=== PATIENT | male | born 1940 | race Caucasian/White ===

== ENCOUNTER 2016-09-06 11:21 | Inpatient (IN) | payer MEDICARE ==
[~2016-09-06] VITALS: Ht 188 cm; Wt 102.1 kg
[2016-09-06 14:40] LABS: HEMOGLOBIN 8.3 gm/dl (14.0-17.5); RED BLOOD COUNT 2.86 M/UL (4.20-5.50); WHITE BLOOD COUNT 8.8 K/UL (4.5-11.0)
[2016-09-06] MEDS ORDERED: HYDRALAZINE HCL50 MG PO (21:21)
[2016-09-06] MEDS ORDERED: NICARDIPINE HCL20 MG PO (21:22)
[2016-09-06] MEDS ORDERED: OMEPRAZOLE20 M1 PO (21:22)
[2016-09-06] MEDS ORDERED: CALCITRIOL0.25 MCG PO (21:23)
[2016-09-06] MEDS ORDERED: FINASTERIDE5 MG PO (21:24)
[2016-09-06] MEDS ORDERED: FLOMAX 0.4 MG0.4 MG PO (21:24)
[2016-09-06] MEDS ORDERED: PROZAC 20 MG CA20 MG PO (21:24)
[2016-09-06] MEDS ORDERED: CATAPRES 0.1MG0.1 MG PO (21:25)
[2016-09-06] MEDS ORDERED: SOTALOL80 MG PO (21:25)
[2016-09-06] MEDS ORDERED: FLONASE ALLER15.8 ML (21:26)
[2016-09-06] MEDS ORDERED: SYMBICORT 16010.2 GM INH (21:26)
[2016-09-07 03:13] LABS: RED BLOOD COUNT 2.76 M/UL (4.20-5.50); WHITE BLOOD COUNT 6.9 K/UL (4.5-11.0)
[2016-09-08 07:16] LABS: HEMOGLOBIN 7.8 gm/dl (14.0-17.5); RED BLOOD COUNT 2.64 M/UL (4.20-5.50); WHITE BLOOD COUNT 8.2 K/UL (4.5-11.0)
[2016-09-10] MEDS ORDERED: SPIRIVA HANDIH18 MCG INH (15:10)
[2016-09-10] MEDS ORDERED: CILOXAN 0.3% O2.5 ML OP (15:29)
== END 2016-09-10 15:55 | disposition home or self-care (01) | DRG 291 ==
LOC: ER1 11:21 → ZEROF 16:00 → M/S 20:32
PROVIDERS: Family Medicine; Internal Medicine Nephrology; ADMIT Family Medicine
DX: I13.0 Hypertensive heart and chronic kidney disease with heart failure and stage 1 through stage 4 chronic kidney disease, or unspecified chronic kidney disease (principal); I50.33 Acute on chronic diastolic (congestive) heart failure; J96.20 Acute and chronic respiratory failure, unspecified whether with hypoxia or hypercapnia; N17.9 Acute kidney failure, unspecified; N02.8 Recurrent and persistent hematuria with other morphologic changes; N18.4 Chronic kidney disease, stage 4 (severe); R00.1 Bradycardia, unspecified; I95.2 Hypotension due to drugs; H10.022 Other mucopurulent conjunctivitis, left eye; D63.1 Anemia in chronic kidney disease; I48.0 Paroxysmal atrial fibrillation; I27.2 Other secondary pulmonary hypertension; N28.1 Cyst of kidney, acquired; D50.9 Iron deficiency anemia, unspecified; I25.10 Atherosclerotic heart disease of native coronary artery without angina pectoris; E03.9 Hypothyroidism, unspecified; J44.9 Chronic obstructive pulmonary disease, unspecified; K21.9 Gastro-esophageal reflux disease without esophagitis; N40.0 Benign prostatic hyperplasia without lower urinary tract symptoms; T50.995A Adverse effect of other drugs, medicaments and biological substances, initial encounter; Y92.230 Patient room in hospital as the place of occurrence of the external cause; Z87.891 Personal history of nicotine dependence; K74.60 Unspecified cirrhosis of liver; Z88.6 Allergy status to analgesic agent; Z88.8 Allergy status to other drugs, medicaments and biological substances; Z79.899 Other long term (current) drug therapy; Z87.11 Personal history of peptic ulcer disease; Z82.49 Family history of ischemic heart disease and other diseases of the circulatory system
CPT/HCPCS: ECHO; 36415; 71010; 71020; 80048; 80053; 81001; 82270; 82272; 82550; 82553; 82570; 82607; 82728; 82746; 83540; 83550; 83735; 83874; 83880; 83970; 84156; 84484; 85025; 85027; 93005; 93306; 94640; 96374; 99285; J0360; J0885; J1756; J1940; J2930; J7030; J7050

== ENCOUNTER → 2016-09-25 | Outpatient (CLI) | payer MEDICARE ==
[~2016-09-25] VITALS: Ht 188 cm; Wt 95.3 kg
[~2016-09-25] MED LIST: BUMEX 1MG TABLET1 MG PO; CALCITRIOL0.25 MCG PO; CATAPRES 0.1MG0.1 MG PO; CILOXAN 0.3% O2.5 ML OP; FINASTERIDE5 MG PO; FLOMAX 0.4 MG0.4 MG PO; FLONASE ALLER15.8 ML; HYDRALAZINE HCL50 MG PO; METOLAZONE5 MG PO; NICARDIPINE HCL20 MG PO; OMEPRAZOLE20 M1 PO; PROZAC 20 MG CA20 MG PO; SOTALOL80 MG PO; SPIRIVA HANDIH18 MCG INH; SYMBICORT 16010.2 GM INH
== END ==
LOC: OPSV 09:00
DX: D50.9 Iron deficiency anemia, unspecified (principal); D50.0 Iron deficiency anemia secondary to blood loss (chronic); N18.4 Chronic kidney disease, stage 4 (severe)
CPT/HCPCS: 96365; 96366; J1756; J7050

== ENCOUNTER → 2016-10-05 | Outpatient (CLI) | payer MEDICARE ==
[~2016-10-05] VITALS: Ht 188 cm; Wt 95.3 kg
[2016-10-05 10:40] LABS: HEMOGLOBIN 8.7 gm/dl (14.0-17.5); RED BLOOD COUNT 3.09 M/UL (4.20-5.50); WHITE BLOOD COUNT 6.3 K/UL (4.5-11.0)
== END ==
LOC: OPSV 09:30
PROVIDERS: Internal Medicine Nephrology
DX: I13.0 Hypertensive heart and chronic kidney disease with heart failure and stage 1 through stage 4 chronic kidney disease, or unspecified chronic kidney disease (principal); N18.4 Chronic kidney disease, stage 4 (severe); D63.1 Anemia in chronic kidney disease; I50.32 Chronic diastolic (congestive) heart failure; N28.89 Other specified disorders of kidney and ureter
CPT/HCPCS: 80048; 82728; 83540; 83550; 85027; 96372; J0885; J1756; J7050; Q4081

== ENCOUNTER 2016-10-19 18:05 | Inpatient (IN) | payer MEDICARE ==
[~2016-10-19] VITALS: Ht 188 cm; Wt 95.3 kg
[~2016-10-19 18:05] MED LIST changes: -BUMEX 1MG TABLET1 MG PO; -METOLAZONE5 MG PO
[2016-10-19 18:40] LABS: HEMOGLOBIN 9.2 gm/dl (14.0-17.5); RED BLOOD COUNT 3.28 M/UL (4.20-5.50); WHITE BLOOD COUNT 7.3 K/UL (4.5-11.0)
[2016-10-20] MEDS ORDERED: NICARDIPINE HCL20 MG PO (00:12)
[2016-10-20] MEDS ORDERED: HYDRALAZINE HCL50 MG PO (00:12)
[2016-10-20] MEDS ORDERED: BUMEX 1MG TABLET1 MG PO (00:13)
[2016-10-20] MEDS ORDERED: METOLAZONE5 MG PO (00:14)
[2016-10-20 06:47] LABS: HEMOGLOBIN 8.7 gm/dl (14.0-17.5); RED BLOOD COUNT 3.12 M/UL (4.20-5.50); WHITE BLOOD COUNT 6.6 K/UL (4.5-11.0)
[2016-10-21 04:27] LABS: HEMOGLOBIN 9.2 gm/dl (14.0-17.5); RED BLOOD COUNT 3.28 M/UL (4.20-5.50); WHITE BLOOD COUNT 6.9 K/UL (4.5-11.0)
== END 2016-10-22 20:25 | disposition home or self-care (01) | DRG 291 ==
LOC: ER1 18:05 → ZEROF 21:36 → PROG CARE 21:36
PROVIDERS: Emergency Medicine; Family Medicine; ADMIT Internal Medicine
DX: I13.0 Hypertensive heart and chronic kidney disease with heart failure and stage 1 through stage 4 chronic kidney disease, or unspecified chronic kidney disease (principal); I50.33 Acute on chronic diastolic (congestive) heart failure; N18.4 Chronic kidney disease, stage 4 (severe); N17.9 Acute kidney failure, unspecified; J44.9 Chronic obstructive pulmonary disease, unspecified; R06.00 Dyspnea, unspecified; I48.0 Paroxysmal atrial fibrillation; I27.2 Other secondary pulmonary hypertension; K74.60 Unspecified cirrhosis of liver; E83.42 Hypomagnesemia; D63.1 Anemia in chronic kidney disease; D50.9 Iron deficiency anemia, unspecified; N40.0 Benign prostatic hyperplasia without lower urinary tract symptoms; E78.5 Hyperlipidemia, unspecified; K21.9 Gastro-esophageal reflux disease without esophagitis; Z87.11 Personal history of peptic ulcer disease; Z87.891 Personal history of nicotine dependence
CPT/HCPCS: 36415; 71010; 80048; 80053; 80061; 82550; 82553; 82728; 83540; 83550; 83690; 83735; 83874; 83880; 84443; 84466; 84484; 85025; 85027; 93005; 94640; 94664; 96372; 99285; J0885; J1756; J1940; J2270; J7050

== ENCOUNTER → 2016-11-02 | Outpatient (CLI) | payer MEDICARE ==
[~2016-11-02] VITALS: Ht 188 cm; Wt 95.3 kg
[~2016-11-02] MED LIST changes: +BUMEX 1MG TABLET1 MG PO; +METOLAZONE5 MG PO
[2016-11-02 11:19] LABS: HEMOGLOBIN 9.7 gm/dl (14.0-17.5); RED BLOOD COUNT 3.49 M/UL (4.20-5.50); WHITE BLOOD COUNT 7.3 K/UL (4.5-11.0)
== END ==
LOC: OPSV 10:00
PROVIDERS: Internal Medicine Nephrology
DX: I13.0 Hypertensive heart and chronic kidney disease with heart failure and stage 1 through stage 4 chronic kidney disease, or unspecified chronic kidney disease (principal); N18.4 Chronic kidney disease, stage 4 (severe); N28.89 Other specified disorders of kidney and ureter; I50.32 Chronic diastolic (congestive) heart failure
CPT/HCPCS: 36415; 80048; 82728; 83540; 83550; 85027; 96372; J0885; Q4081

== ENCOUNTER → 2016-11-23 | Outpatient (CLI) | payer MEDICARE ==
[~2016-11-23] VITALS: Ht 188 cm; Wt 95.3 kg
[2016-11-23 11:15] LABS: HEMOGLOBIN 9.1 gm/dl (14.0-17.5); RED BLOOD COUNT 3.3 M/UL (4.20-5.50); WHITE BLOOD COUNT 5.4 K/UL (4.5-11.0)
== END ==
LOC: OPSV 11-16 11:00
PROVIDERS: Internal Medicine Nephrology
DX: I13.0 Hypertensive heart and chronic kidney disease with heart failure and stage 1 through stage 4 chronic kidney disease, or unspecified chronic kidney disease (principal); N18.4 Chronic kidney disease, stage 4 (severe); I50.32 Chronic diastolic (congestive) heart failure; N28.89 Other specified disorders of kidney and ureter
CPT/HCPCS: 36415; 80048; 82728; 83540; 83550; 85027; 96365; 96366; J1756; J7030

== ENCOUNTER → 2016-12-07 | Outpatient (CLI) | payer MEDICARE ==
[~2016-12-07] VITALS: Ht 188 cm; Wt 95.3 kg
== END ==
LOC: OPSV 11-30 11:00
DX: D50.9 Iron deficiency anemia, unspecified (principal)
CPT/HCPCS: 96365; 96366; J1756; J7050

== ENCOUNTER 2016-12-14 21:20 | Emergency (ER) | payer MEDICARE | END 2016-12-14 23:06 | disposition short-term general hospital (02) | LOC: ER1 21:20 | DX: S02.0XXA Fracture of vault of skull, initial encounter for closed fracture (principal); S06.5X0A Traumatic subdural hemorrhage without loss of consciousness, initial encounter; Z79.82 Long term (current) use of aspirin; Z79.899 Other long term (current) drug therapy; W19.XXXA Unspecified fall, initial encounter; Y92.009 Unspecified place in unspecified non-institutional (private) residence as the place of occurrence of the external cause | CPT/HCPCS: 70450; 72125; 73080; 73502; 96374; 96375; 96376; 99291; J2405; J3010 ==

== ENCOUNTER 2017-03-04 15:26 | Emergency (ER) | payer MEDICARE ==
[2017-03-04 16:24] LABS: HEMOGLOBIN 10.4 gm/dl (14.0-17.5); RED BLOOD COUNT 3.61 M/UL (4.20-5.50); WHITE BLOOD COUNT 12.1 K/UL (4.5-11.0)
== END 2017-03-04 18:20 | disposition short-term general hospital (02) ==
LOC: ER1 15:26
PROVIDERS: Emergency Medicine
DX: S06.5X9A Traumatic subdural hemorrhage with loss of consciousness of unspecified duration, initial encounter (principal); M25.532 Pain in left wrist; W01.198A Fall on same level from slipping, tripping and stumbling with subsequent striking against other object, initial encounter; Y92.009 Unspecified place in unspecified non-institutional (private) residence as the place of occurrence of the external cause
CPT/HCPCS: 70450; 72125; 72131; 73110; 80053; 85025; 85610; 85730; 96374; 96375; 99291; J2270; J2405

== ENCOUNTER 2020-08-21 21:32 | Emergency (ER) | payer MEDICARE ==
[~2020-08-21 21:32] MED LIST changes: +ADALAT CC60 MG PO; +ATORVASTATIN CA40 MG PO; +BUMEX PO; +CARVEDILOL25 MG PO; +COREG 12.5MG12.5 MG PO; +ECOTRIN81 MG PO; +ENOXAPARIN30 MG/0.3 SC; +FLONASE 0.05% N16 GM; +HYDROCODON-ACE1 EAC4 PO; +HYDROCODONE-CHLO5 ML PO; +IPRAT-ALBUT 0.5-3 ML INH; +KEPPRA500 MG PO; +LEVAQUIN500 MG PO; +LEVAQUIN750 MG PO; +LEVOFLOXACIN250 MG PO; +MEDROL DOSEPAK 24 MG PO; +MEDROL4 MG PO; +NORCO 5-325 TA1 EACH PO; +NORVASC 5 MG TAB5 MG PO; +NORVASC10 MG PO; +PERCOCET 5/325 T1 EA PO; +PHOSLO 667 MG667 MG PO; +PROSCAR5 MG PO; +RENAL CAPS SOFTG1 MG PO; +ROCALTROL CA0.25 MCG PO; +SENNA LAX8.6 MG PO; +SODIUM BICARBO325 MG PO; +SPIRIVA RESPIMAT4 GM INH; +SYMBICORT 160-1 INHA INH; +SYNTHROID 50 M50 MCG PO; +TYLENOL 325MG325 MG PO; +ZYRTEC10 M3 PO; +ZYRTEC10 MG PO
[2020-08-21 21:59] LABS: HEMOGLOBIN 11.9 gm/dl (14.0-17.5); RED BLOOD COUNT 3.99 M/UL (4.20-5.50); WHITE BLOOD COUNT 7.7 K/UL (4.5-11.0)
== END 2020-08-21 23:05 | disposition home or self-care (01) ==
LOC: ER1 21:32
PROVIDERS: Physician Assistant
DX: J90 Pleural effusion, not elsewhere classified (principal); R19.5 Other fecal abnormalities; I13.2 Hypertensive heart and chronic kidney disease with heart failure and with stage 5 chronic kidney disease, or end stage renal disease; Z20.822 Contact with and (suspected) exposure to COVID-19; I50.40 Unspecified combined systolic (congestive) and diastolic (congestive) heart failure; N18.6 End stage renal disease; I25.2 Old myocardial infarction; K21.9 Gastro-esophageal reflux disease without esophagitis; I48.20 Chronic atrial fibrillation, unspecified; Z99.2 Dependence on renal dialysis; Z87.891 Personal history of nicotine dependence
CPT/HCPCS: 0240U; 36600; 71045; 80053; 82270; 82550; 82553; 82803; 83874; 83880; 84484; 85025; 85610; 85730; 93005; 99285; C9113

== ENCOUNTER 2020-08-24 19:58 | Observation (INO) | payer MEDICARE ==
[~2020-08-24] VITALS: Ht 182.9 cm; Wt 59.0 kg
[2020-08-24 20:53] LABS: HEMOGLOBIN 11.3 gm/dl (14.0-17.5); RED BLOOD COUNT 3.77 M/UL (4.20-5.50); WHITE BLOOD COUNT 6.3 K/UL (4.5-11.0)
[2020-08-24] MEDS ORDERED: ALBUTEROL2.5 MG/3 M INH (21:05)
[2020-08-24] MEDS ORDERED: RENVELA800 MG PO (22:00)
[2020-08-25 06:40] LABS: HEMOGLOBIN 10.9 gm/dl (14.0-17.5); RED BLOOD COUNT 3.69 M/UL (4.20-5.50); WHITE BLOOD COUNT 5.7 K/UL (4.5-11.0)
[2020-08-26 06:40] LABS: RED BLOOD COUNT 3.77 M/UL (4.20-5.50); WHITE BLOOD COUNT 5.4 K/UL (4.5-11.0)
[2020-08-26] MEDS ORDERED: SPIRIVA HANDIH18 MCG INH (15:47)
[2020-08-26] MEDS ORDERED: LOPRESSOR 25 MG25 MG PO (15:57)
== END 2020-08-26 17:31 | disposition home or self-care (01) ==
LOC: ER1 19:58 → CDU 22:44 → MED SURG 4 22:44
PROVIDERS: Family Medicine; Internal Medicine; ADMIT Internal Medicine
DX: J96.21 Acute and chronic respiratory failure with hypoxia (principal); I13.2 Hypertensive heart and chronic kidney disease with heart failure and with stage 5 chronic kidney disease, or end stage renal disease; N18.6 End stage renal disease; I50.43 Acute on chronic combined systolic (congestive) and diastolic (congestive) heart failure; J44.9 Chronic obstructive pulmonary disease, unspecified; J90 Pleural effusion, not elsewhere classified; I25.10 Atherosclerotic heart disease of native coronary artery without angina pectoris; I48.0 Paroxysmal atrial fibrillation; D71 Functional disorders of polymorphonuclear neutrophils; F41.9 Anxiety disorder, unspecified; F32.9 Major depressive disorder, single episode, unspecified; E03.9 Hypothyroidism, unspecified; N40.0 Benign prostatic hyperplasia without lower urinary tract symptoms; K74.60 Unspecified cirrhosis of liver; K21.9 Gastro-esophageal reflux disease without esophagitis; Z20.822 Contact with and (suspected) exposure to COVID-19; Z99.81 Dependence on supplemental oxygen; Z87.891 Personal history of nicotine dependence; Z99.2 Dependence on renal dialysis; Z83.3 Family history of diabetes mellitus; Z98.890 Other specified postprocedural states; Z79.899 Other long term (current) drug therapy
CPT/HCPCS: ECHO; 0240U; 36415; 36600; 71045; 71046; 71250; 80048; 80053; 82550; 82553; 82803; 83605; 83880; 84484; 85025; 85027; 85610; 87040; 90937; 93005; 93306; 93970; 94640; 94664; 94760; 96372; 96374; 96375; 99285; G0257; G0378; J1644; J2543; Q9965

== ENCOUNTER → 2021-01-06 | Outpatient (CLI) | payer MEDICARE ==
[~2021-01-06] MED LIST changes: +ALBUTEROL2.5 MG/3 M INH; +LOPRESSOR 25 MG25 MG PO; +RENVELA800 MG PO
== END ==
LOC: CT 08:00
DX: R93.429 Abnormal radiologic findings on diagnostic imaging of unspecified kidney (principal); K74.69 Other cirrhosis of liver; N28.9 Disorder of kidney and ureter, unspecified
CPT/HCPCS: 74170; Q9967

== ENCOUNTER → 2021-04-13 | Outpatient (CLI) | payer MEDICARE | LOC: US 13:00 | DX: R93.429 Abnormal radiologic findings on diagnostic imaging of unspecified kidney (principal); K74.69 Other cirrhosis of liver ==

== ENCOUNTER → 2021-05-24 | Outpatient (CLI) | payer MEDICARE | LOC: CT 09:30 | DX: R93.429 Abnormal radiologic findings on diagnostic imaging of unspecified kidney (principal); K74.69 Other cirrhosis of liver; N28.89 Other specified disorders of kidney and ureter | CPT/HCPCS: 74170; Q9967 ==

== ENCOUNTER 2021-08-07 17:49 | Inpatient (IN) | payer MEDICARE ==
[~2021-08-07] VITALS: Ht 190.5 cm; Wt 88.0 kg
[~2021-08-07 17:49] MED LIST changes: -IPRAT-ALBUT 0.5-3 ML INH; -RENVELA800 MG PO; -SYMBICORT 160-1 INHA INH
[2021-08-07 18:43] LABS: HEMOGLOBIN 11.4 gm/dl (14.0-17.5); RED BLOOD COUNT 3.61 M/UL (4.20-5.50); WHITE BLOOD COUNT 9.5 K/UL (4.5-11.0)
[2021-08-08 06:44] LABS: HEMOGLOBIN 10.1 gm/dl (14.0-17.5)
[2021-08-08 06:50] LABS: RED BLOOD COUNT 3.22 M/UL (4.20-5.50); WHITE BLOOD COUNT 6.6 K/UL (4.5-11.0)
[2021-08-08] MEDS ORDERED: SYMBICORT 160-1 INHA INH (10:18)
[2021-08-08] MEDS ORDERED: PROAIR HFA8.5 GM INH (11:01)
[2021-08-08] MEDS ORDERED: TYLENOL EXTRA500 MG PO (11:05)
[2021-08-08] MEDS ORDERED: ALBUTEROL2.5 MG/3 M INH (11:11)
[2021-08-08] MEDS ORDERED: SPIRIVA HANDIH18 MCG INH (11:51)
[2021-08-08] MEDS ORDERED: IPRAT-ALBUT 0.5-3 ML INH (16:49)
[2021-08-08] MEDS ORDERED: RENVELA800 MG PO (22:00)
--- NOTE | 2021-08-09 02:05 | NUR ---
NOTIFIED DR OLIVEROS OF PTS CONSISTENTLY LOW BPS SINCE RETURNING FROM [place]. NO NEW ORDERS AT THIS TIME. PT ASYMPTOMATIC AND SITTING IN CHAIR. VOICES NO CONCERNS OR SYMPTOMS AT THIS TIME.
[2021-08-09 14:55] LABS: HEMOGLOBIN 11.3 gm/dl (14.0-17.5); WHITE BLOOD COUNT 5.9 K/UL (4.5-11.0)
[2021-08-09 14:58] LABS: RED BLOOD COUNT 3.63 M/UL (4.20-5.50)
[2021-08-10 02:51] LABS: HEMOGLOBIN 10.3 gm/dl (14.0-17.5); RED BLOOD COUNT 3.31 M/UL (4.20-5.50); WHITE BLOOD COUNT 6.1 K/UL (4.5-11.0)
[2021-08-10] MEDS ORDERED: OMNICEF 300 MG300 MG PO (10:40)
[2021-08-10] MEDS ORDERED: DOXYCYCLINE HY100 M2 PO (10:40)
[2021-08-10] MEDS ORDERED: MIDODRINE HCL10 MG PO (10:40)
== END 2021-08-10 12:09 | disposition home or self-care (01) | DRG 640 ==
LOC: ER1 17:49 → CDU 20:49 → CCU 20:49 → PROG CARE 20:49 → CCU 08-08 02:15 → PROG CARE 08-08 11:22
PROVIDERS: Emergency Medicine; Internal Medicine; ADMIT Internal Medicine
PROC: 3E033XZ Introduction of Vasopressor into Peripheral Vein, Percutaneous Approach (ICD-10-PCS; principal; 2021-08-07)
PROC: 5A1D70Z Performance of Urinary Filtration, Intermittent, Less than 6 Hours Per Day (ICD-10-PCS; 2021-08-08)
PROC: 5A1D70Z Performance of Urinary Filtration, Intermittent, Less than 6 Hours Per Day (ICD-10-PCS; 2021-08-09)
DX: E87.70 Fluid overload, unspecified (principal); N18.6 End stage renal disease; Z20.822 Contact with and (suspected) exposure to COVID-19; J96.21 Acute and chronic respiratory failure with hypoxia; I13.2 Hypertensive heart and chronic kidney disease with heart failure and with stage 5 chronic kidney disease, or end stage renal disease; I50.42 Chronic combined systolic (congestive) and diastolic (congestive) heart failure; I48.20 Chronic atrial fibrillation, unspecified; I95.89 Other hypotension; I27.20 Pulmonary hypertension, unspecified; K21.9 Gastro-esophageal reflux disease without esophagitis; N40.0 Benign prostatic hyperplasia without lower urinary tract symptoms; K74.60 Unspecified cirrhosis of liver; D63.1 Anemia in chronic kidney disease; N28.89 Other specified disorders of kidney and ureter; D69.6 Thrombocytopenia, unspecified; J44.9 Chronic obstructive pulmonary disease, unspecified; E03.9 Hypothyroidism, unspecified; I25.10 Atherosclerotic heart disease of native coronary artery without angina pectoris; I48.0 Paroxysmal atrial fibrillation; Z91.15 Patient's noncompliance with renal dialysis; Z79.01 Long term (current) use of anticoagulants; Z99.81 Dependence on supplemental oxygen; Z87.820 Personal history of traumatic brain injury; Z87.11 Personal history of peptic ulcer disease; Z90.49 Acquired absence of other specified parts of digestive tract; Z98.890 Other specified postprocedural states; Z80.42 Family history of malignant neoplasm of prostate; Z83.3 Family history of diabetes mellitus
CPT/HCPCS: 0240U; 36415; 36600; 71045; 80048; 80053; 82550; 82553; 82803; 83605; 83735; 83880; 84100; 84484; 85025; 85027; 85610; 85652; 85730; 86140; 87040; 90935; 90937; 93005; 94640; 94660; 94664; 94760; 96365; 99285; J0696; J1644; J2543

== ENCOUNTER 2021-08-18 11:02 | Inpatient (IN) | payer MEDICARE ==
[~2021-08-18] VITALS: Ht 185.4 cm; Wt 79.8 kg
[~2021-08-18 11:02] MED LIST changes: +DOXYCYCLINE HY100 M2 PO; +IPRAT-ALBUT 0.5-3 ML INH; +MIDODRINE HCL10 MG PO; -OMEPRAZOLE20 M1 PO; +OMEPRAZOLE20 MG PO; +OMNICEF 300 MG300 MG PO; +PROAIR HFA8.5 GM INH; +RENVELA800 MG PO; +SYMBICORT 160-1 INHA INH; +TYLENOL EXTRA500 MG PO
[2021-08-18 11:38] LABS: RED BLOOD COUNT 3.82 M/UL (4.20-5.50); WHITE BLOOD COUNT 8.6 K/UL (4.5-11.0)
[2021-08-18] MEDS ORDERED: MIDODRINE HCL10 MG PO (15:41)
[2021-08-18] MEDS ORDERED: FINASTERIDE5 MG PO (15:47)
[2021-08-18 18:24] LABS: HEMOGLOBIN 10.7 gm/dl (14.0-17.5); WHITE BLOOD COUNT 9.8 K/UL (4.5-11.0)
[2021-08-18 18:56] LABS: RED BLOOD COUNT 3.43 M/UL (4.20-5.50)
[2021-08-19 01:18] LABS: HEMOGLOBIN 10.7 gm/dl (14.0-17.5); RED BLOOD COUNT 3.43 M/UL (4.20-5.50); WHITE BLOOD COUNT 11.5 K/UL (4.5-11.0)
[2021-08-20 05:54] LABS: RED BLOOD COUNT 3.23 M/UL (4.20-5.50)
[2021-08-20 06:01] LABS: WHITE BLOOD COUNT 7.4 K/UL (4.5-11.0)
[2021-08-21 04:52] LABS: HEMOGLOBIN 10.4 gm/dl (14.0-17.5); RED BLOOD COUNT 3.43 M/UL (4.20-5.50); WHITE BLOOD COUNT 7.4 K/UL (4.5-11.0)
[2021-08-21 18:32] LABS: RBC (AUTOMATED) 19600 (0-100000); WBC (AUTOMATED) 278 (0-500)
[2021-08-21 18:33] LABS: MONONUCLEAR CELLS 84.2 (75-100); POLYMORPHONUCLEAR % 15.8 (0-25)
[2021-08-21 19:00] LABS: AMYLASE, BODY FLUID 17 U/L; LDH, BODY FLUID 126 U/L; TOTAL PROTEIN, BODY FLUID 3.3 gm/dL
[2021-08-22 05:04] LABS: HEMOGLOBIN 11.7 gm/dl (14.0-17.5)
[2021-08-22 05:16] LABS: RED BLOOD COUNT 3.78 M/UL (4.20-5.50)
[2021-08-23 05:23] LABS: HEMOGLOBIN 11.4 gm/dl (14.0-17.5); RED BLOOD COUNT 3.66 M/UL (4.20-5.50); WHITE BLOOD COUNT 9.6 K/UL (4.5-11.0)
--- NOTE | 2021-08-23 13:00 | NUR ---
1130: PHYSICIAN AWARE OF LEVOPHED AT 40MCG/MIN
[2021-08-24 05:45] LABS: HEMOGLOBIN 11.4 gm/dl (14.0-17.5); RED BLOOD COUNT 3.77 M/UL (4.20-5.50); WHITE BLOOD COUNT 12.6 K/UL (4.5-11.0)
[2021-08-24 15:32] LABS: RBC (AUTOMATED) 100 10^6 (0); WBC (AUTOMATED 1 10^3 (0-5)
[2021-08-24 15:51] LABS: GLUCOSE,CSF 89 mg/dL (50-80); TOTAL PROTEIN,CSF 86 mg/dL (20-45)
[2021-08-25 05:14] LABS: RED BLOOD COUNT 3.63 M/UL (4.20-5.50); WHITE BLOOD COUNT 10.2 K/UL (4.5-11.0)
[2021-08-26 04:36] LABS: HEMOGLOBIN 11.4 gm/dl (14.0-17.5); RED BLOOD COUNT 3.76 M/UL (4.20-5.50); WHITE BLOOD COUNT 10.5 K/UL (4.5-11.0)
[2021-08-27 04:38] LABS: HEMOGLOBIN 10.8 gm/dl (14.0-17.5); RED BLOOD COUNT 3.56 M/UL (4.20-5.50); WHITE BLOOD COUNT 10.2 K/UL (4.5-11.0)
[2021-08-28 04:30] LABS: HEMOGLOBIN 9.7 gm/dl (14.0-17.5); RED BLOOD COUNT 3.24 M/UL (4.20-5.50); WHITE BLOOD COUNT 9.9 K/UL (4.5-11.0)
[2021-08-29 05:38] LABS: HEMOGLOBIN 9.9 gm/dl (14.0-17.5); RED BLOOD COUNT 3.2 M/UL (4.20-5.50); WHITE BLOOD COUNT 10.9 K/UL (4.5-11.0)
--- NOTE | 2021-08-29 12:06 | NUR ---
PATIENT ALERT AND FOLLOWING COMMANDS. DR. BERRY AT BEDSIDE AND PLACED PATIENT IN SPONTANEOUS BREATHING TRIAL. 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 FAMILY NOTIFIED WELL.
--- NOTE | 2021-08-29 18:11 | NUR ---
SEE CODE SHEET FOR CODE BLUE INFORMATION.
== END 2021-08-29 16:28 | disposition expired | DRG 870 ==
LOC: ER1 11:02 → CDU 13:23 → CCU 13:23
PROVIDERS: Emergency Medicine; Internal Medicine; Internal Medicine Nephrology; Internal Medicine Pulmonary Disease; Physician Assistant; ADMIT Internal Medicine
PROC: 5A12012 Performance of Cardiac Output, Single, Manual (ICD-10-PCS; principal; 2021-08-18)
PROC: 0BH17EZ Insertion of Endotracheal Airway into Trachea, Via Natural or Artificial Opening (ICD-10-PCS; principal; 2021-08-18)
PROC: 5A1955Z Respiratory Ventilation, Greater than 96 Consecutive Hours (ICD-10-PCS; principal; 2021-08-18)
PROC: 5A1D70Z Performance of Urinary Filtration, Intermittent, Less than 6 Hours Per Day (ICD-10-PCS; 2021-08-18)
PROC: 3E043XZ Introduction of Vasopressor into Central Vein, Percutaneous Approach (ICD-10-PCS; 2021-08-18)
PROC: B24BZZZ Ultrasonography of Heart with Aorta (ICD-10-PCS; 2021-08-18)
PROC: 5A1D70Z Performance of Urinary Filtration, Intermittent, Less than 6 Hours Per Day (ICD-10-PCS; 2021-08-19)
PROC: 0W993ZZ Drainage of Right Pleural Cavity, Percutaneous Approach (ICD-10-PCS; 2021-08-21)
PROC: BB4BZZZ Ultrasonography of Pleura (ICD-10-PCS; 2021-08-21)
PROC: 5A1D70Z Performance of Urinary Filtration, Intermittent, Less than 6 Hours Per Day (ICD-10-PCS; 2021-08-21)
PROC: 0DH67UZ Insertion of Feeding Device into Stomach, Via Natural or Artificial Opening (ICD-10-PCS; 2021-08-21)
PROC: 3E0G76Z Introduction of Nutritional Substance into Upper GI, Via Natural or Artificial Opening (ICD-10-PCS; 2021-08-21)
PROC: 02HV33Z Insertion of Infusion Device into Superior Vena Cava, Percutaneous Approach (ICD-10-PCS; 2021-08-23)
PROC: B548ZZA Ultrasonography of Superior Vena Cava, Guidance (ICD-10-PCS; 2021-08-23)
PROC: 4A00X4Z Measurement of Central Nervous Electrical Activity, External Approach (ICD-10-PCS; 2021-08-23)
PROC: 5A1D70Z Performance of Urinary Filtration, Intermittent, Less than 6 Hours Per Day (ICD-10-PCS; 2021-08-23)
PROC: 009U3ZX Drainage of Spinal Canal, Percutaneous Approach, Diagnostic (ICD-10-PCS; 2021-08-24)
PROC: 5A1D70Z Performance of Urinary Filtration, Intermittent, Less than 6 Hours Per Day (ICD-10-PCS; 2021-08-25)
PROC: 0W9930Z Drainage of Right Pleural Cavity with Drainage Device, Percutaneous Approach (ICD-10-PCS; 2021-08-26)
PROC: BB4BZZZ Ultrasonography of Pleura (ICD-10-PCS; 2021-08-26)
PROC: 5A1D70Z Performance of Urinary Filtration, Intermittent, Less than 6 Hours Per Day (ICD-10-PCS; 2021-08-28)
PROC: 0B9J8ZX Drainage of Left Lower Lung Lobe, Via Natural or Artificial Opening Endoscopic, Diagnostic (ICD-10-PCS; 2021-08-28)
PROC: 5A09357 Assistance with Respiratory Ventilation, Less than 24 Consecutive Hours, Continuous Positive Airway Pressure (ICD-10-PCS; 2021-08-29)
DX: A41.9 Sepsis, unspecified organism (principal); R65.21 Severe sepsis with septic shock; N18.6 End stage renal disease; Z20.822 Contact with and (suspected) exposure to COVID-19; J96.21 Acute and chronic respiratory failure with hypoxia; Z16.12 Extended spectrum beta lactamase (ESBL) resistance; I50.43 Acute on chronic combined systolic (congestive) and diastolic (congestive) heart failure; G93.41 Metabolic encephalopathy; J69.0 Pneumonitis due to inhalation of food and vomit; K72.00 Acute and subacute hepatic failure without coma; J96.22 Acute and chronic respiratory failure with hypercapnia; J93.0 Spontaneous tension pneumothorax; R57.0 Cardiogenic shock; I49.01 Ventricular fibrillation; I46.2 Cardiac arrest due to underlying cardiac condition; I13.2 Hypertensive heart and chronic kidney disease with heart failure and with stage 5 chronic kidney disease, or end stage renal disease; J44.1 Chronic obstructive pulmonary disease with (acute) exacerbation; I48.20 Chronic atrial fibrillation, unspecified; E87.2 Acidosis; I47.2 Ventricular tachycardia; E87.1 Hypo-osmolality and hyponatremia; I42.8 Other cardiomyopathies; J98.19 Other pulmonary collapse; B39.9 Histoplasmosis, unspecified; E78.5 Hyperlipidemia, unspecified; I50.811 Acute right heart failure; D69.6 Thrombocytopenia, unspecified; I49.3 Ventricular premature depolarization; E87.6 Hypokalemia; K21.9 Gastro-esophageal reflux disease without esophagitis; N28.9 Disorder of kidney and ureter, unspecified; B96.20 Unspecified Escherichia coli [E. coli] as the cause of diseases classified elsewhere; K74.60 Unspecified cirrhosis of liver; I27.20 Pulmonary hypertension, unspecified; I08.1 Rheumatic disorders of both mitral and tricuspid valves; L89.312 Pressure ulcer of right buttock, stage 2; D63.1 Anemia in chronic kidney disease; R53.81 Other malaise; N40.0 Benign prostatic hyperplasia without lower urinary tract symptoms; E03.9 Hypothyroidism, unspecified; Z79.01 Long term (current) use of anticoagulants; Z87.820 Personal history of traumatic brain injury; Z99.81 Dependence on supplemental oxygen; Z98.890 Other specified postprocedural states; Z87.81 Personal history of (healed) traumatic fracture; Z90.49 Acquired absence of other specified parts of digestive tract; Z80.0 Family history of malignant neoplasm of digestive organs; Z83.3 Family history of diabetes mellitus; Z87.891 Personal history of nicotine dependence; Z91.15 Patient's noncompliance with renal dialysis; Z87.442 Personal history of urinary calculi
CPT/HCPCS: ECHO; 0240U; 31500; 36415; 36600; 51702; 70450; 71045; 71250; 80053; 80202; 81001; 82150; 82533; 82550; 82553; 82803; 82945; 82962; 83036; 83605; 83615; 83735; 83874; 83880; 83986; 84100; 84157; 84484; 85025; 85027; 85384; 85610; 85652; 85730; 86140; 87015; 87040; 87070; 87077; 87081; 87086; 87102; 87116; 87186; 87205; 87206; 87449; 89051; 90937; 93005; 93306; 93308; 93970; 94002; 94003; 94640; 94760; 95819; 96374; 96375; 99285; A6212; C1729; C1751; C9113; J0133; J0171; J0282; J0461; J0692; J1335; J1644; J1940; J2185; J2248; J2250; J2370; J2543; J2704; J3010; J3370; J3475; J7030; J7040; J7042; J7050; J7070; P9047